=== PATIENT | female | born 1970 | race Caucasian/White ===

== ENCOUNTER 2018-02-24 11:25 | Emergency (ER) | payer MEDICAID, OTHER ==
[2018-02-24 11:36] VITALS: BP 124/74
--- NOTE | 2018-02-24 12:00 | EDPHY ---
H & P Stated Complaint: c/o UTI s/s x 3 days Time Seen by Provider: 02/24/18 11:26 HPI/ROS: 47-year-old female presents complaining of frequent urination with urgency similar to prior urinary tract infections her last urinary tract infection was approximately 6 weeks ago and at that time she took Macrobid. She denies nausea vomiting, flank pain, abdominal pain fevers or chills. Review of systems As per HPI General no fever no chills no weakness HEENT no eye pain no eye discharge. No eye redness, no sore throat Respiratory no cough, no shortness of breath Cardiac no chest pain, no peripheral edema GI no abdominal pain, no diarrhea, no constipation, no nausea, no vomiting no flank pain, no hematuria, positive dysuria Musculoskeletal no myalgias, no joint pain Heme no easy bruising, no easy bleeding Endo no polyuria, no polydipsia Skin no rashes, no pruritus Neuro no syncope, no dizziness, no headaches Psych is no suicidal ideation, no homicidal ideation Source: Patient Exam Limitations: No limitations - Personal History LMP (Females 10-55): Hysterectomy Current Tetanus Diphtheria and Acellular Pertussis (TDAP): Yes Tetanus Vaccine Date: <10 YRS AGO - Medical/Surgical History Hx Asthma: No Hx Chronic Respiratory Disease: No Hx Diabetes: No Hx Cardiac Disease: No Hx Renal Disease: No Hx Cirrhosis: No Hx Alcoholism: No Hx HIV/AIDS: No Hx Splenectomy or Spleen Trauma: No Other PMH: TA/Hyst/ breast aug/pecticis exscavata - Family History Significant Family History: No pertinent family hx - Social History Smoking Status: Never smoked Alcohol Use: Other (Has stopped drinking, had prior history of heavy alcohol use ) - Physical Exam Exam: 47-year-old female e alert and oriented in no acute distress nontoxic appearance , afebrile Atraumatic normocephalic Neck supple Lungs clear to auscultation bilaterally Heart regular rate and rhythm Abdomen normoactive bowel sounds soft mild suprapubic tenderness no guarding no rebound Back no CVA tenderness Extremities no cyanosis clubbing or edema Skin no rash Constitutional: Initial Vital Signs Temperature (C) 36.6 C 02/24/18 11:33 Heart Rate 78 02/24/18 11:33 Respiratory Rate 18 02/24/18 11:33 Blood Pressure 124/74 H 02/24/18 11:33 O2 Sat (%) 97 02/24/18 11:33 O2 Delivery Mode Room Air Allergies/Adverse Reactions: No Known Allergies Allergy (Unverified 07/26/10 09:47) Home Medications: Medication Instructions Recorded Cephalexin 500 mg PO TID #21 tablet 02/24/18 Vivtrol 02/24/18 Medical Decision Making ED Course/Re-evaluation: Patient seen and evaluated for urinary frequency, urinary urgency Urinalysis 3+ leuk Urine sent for culture Impression UTI Plan Cephalexin Follow-up PCP Differential Diagnosis: Differential diagnosis considered but not limited to UTI, pyelonephritis - Data Points Point of Care Test Results: Urine Dip Collection Date 02/24/18 Collection Time 11:43 Specific [place] (1.002-1.030) 1.020 PH (5.0-7.5) 6.0 Leukocytes (Negative) 3+ Nitrites (Negative) Negative Protein (Negative) Negative Glucose (Negative) Negative Ketones (Negative) Negative Urobilnogen (0.2-1.0 EU) 0.2 Blood (Negative) Negative Departure - Departure Disposition: Home, Routine, Self-Care Clinical Impression: Urinary tract infection Condition: Good Instructions: Urinary Tract Infection in Women (ED) Referrals: Yasmany Pascal MD [Primary Care Provider] - As per Instructions Prescriptions: Cephalexin 500 mg PO TID #21 tablet
== END 2018-02-24 12:10 | disposition home or self-care (01) ==
LOC: CED 11:25
DX: R35.0 Frequency of micturition (principal); R39.15 Urgency of urination